=== PATIENT | male | born 1965 | race Caucasian/White ===

== ENCOUNTER → 2020-06-01 12:40 | Outpatient (CLI) | payer OTHER, SELFPAY ==
[2020-06-02 00:21] LABS: SARS-CoV-2 RNA PCR Negative
== END ==
PROVIDERS: PCP Family Medicine Sports Medicine; Visit Provider Internal Medicine Gastroenterology
DX: Z01.812 Encounter for preprocedural laboratory examination (principal); Z20.822 Contact with and (suspected) exposure to COVID-19
CPT/HCPCS: C9803; U0003; U0005

== ENCOUNTER 2020-06-04 01:18 | Day surgery (SDC) | payer OTHER, SELFPAY ==
[2020-05-24 08:48] VITALS: BMI 38.5
[2020-06-04 10:06] VITALS: BP 132/73; PULSE 94; RESP 12; TEMP 36.4; O2SAT 98; BMI 37.3
--- NOTE | 2020-06-04 10:13 | WPDANESEPPF ---
Anes - Initial Pre Proc Eval Procedure: Operation Date: 06/04/20 11:15 Proposed Procedures p Screening Colonoscopy - John Renee MD Date/Time: 06/04/20 10:13 Surgeon: John Renee MD Pre Op Diagnosis: Neoplasm Screening Patient Data Age: 54 Gender: M Height: 1.88 m Weight: 131.9 kg Last Vital Signs Temp 36.4 C L 06/04/20 10:06 Pulse 94 06/04/20 10:06 Resp 12 06/04/20 10:06 BP 132/73 06/04/20 10:06 Pulse Ox 98 06/04/20 10:06 Allergies Allergy/AdvReac Type Severity Reaction Status Date / Time No Known Allergies Allergy Verified 06/04/20 10:03 Home Medications Medication Instructions Recorded Confirmed Type amlodipine 10 mg PO DAILY 05/24/20 05/24/20 History atorvastatin 80 mg PO DAILY 05/24/20 05/24/20 History insulin glargine [Lantus U-100 55 unit SUBCUT DAILY 05/24/20 06/04/20 History Insulin] insulin lispro [Humalog U-100 20 unit SUBCUT DAILY 05/24/20 06/04/20 History Insulin] levothyroxine [Synthroid] 200 mcg PO DAILY 05/24/20 06/04/20 History lisinopril-hydrochlorothiazide 1 tablet PO BID 05/24/20 06/04/20 History metformin 1,000 mg PO BID 05/24/20 06/04/20 History metoprolol succinate 50 mg PO DAILY 05/24/20 06/04/20 History pioglitazone 30 mg PO DAILY 05/24/20 06/04/20 History Patient hx anesthesia problems: none Family hx anesthesia problems: none PMFSH Past Medical History Medical History (Updated 06/04/20 @ 10:15 by Eusebio Restrepo MD) Diabetes HTN (hypertension) Hyperlipidemia Hypothyroidism Obesity Osteoarthritis Social History Social History Smoking packs per day: 2 Smoking cigarettes per day: 40.0 Years smoked: 16 Smoking pack-years: 32.00 Smoking status: Former smoker Tobacco type: cigarettes Alcohol intake: current Alcohol use details: rarely Living arrangements: with family Spiritual care concerns: No Anes - Eval Final PreProcedure Day of Procedure 06/04/20 10:13 Patient weight: obese Heart: regular rate and rhythm Lungs: clear to auscultation and normal air movement Airway: Mallampati scale class II Neurological: alert and oriented Last oral intake: >/= 8 hours ASA classification: III Emergent: no Anesthetic plan: proceed Anesthesia type and monitoring: general GIVS Informed Consent: The patient's anesthetic plan and its attendant risks and benefits were discussed with the patient/family/POA. Questions were solicited and answers provided to the satisfaction of the patient/family/POA.
[2020-06-04] MEDS: LACTATED RINGERS 1,000 ML 150 ML IV CONT (10:16)
[2020-06-04 10:21] LABS: Glucose Point of Care 211 (65-105)
--- NOTE | 2020-06-04 11:05 | PM.HPGS ---
History of Present Illness History of Present Illness Consent: Risks, benefits, and alternatives have been discussed and questions answered. Patient agrees to proceed with procedure. Chief complaint: Neoplasm Screening Narrative: Eligio Overton is a 54 year old male here for first screening colonoscopy Review of Systems Constitutional: Constitutional: Denies headache(s) and Denies weakness Eyes: Eyes: Denies blurry vision ENT: Reports Normal hearing present, Denies headache(s) and Denies neck pain Cardiovascular: Cardiovascular: Denies chest pain and Denies dyspnea Respiratory: Respiratory: Denies dyspnea Gastrointestinal: Gastrointestinal: Reports no additional gastrointestinal complaints Genitourinary: Genitourinary: Denies dysuria Musculoskeletal: Musculoskeletal: Denies neck pain Integumentary/Breasts: Skin/Breast: Denies dry skin Neurologic: Reports Normal hearing present, Denies headache(s) and Denies weakness Psychiatric: Psychiatric: Denies anxiety Endocrine: Endocrine: Denies change in body appearance Hematologic/Lymphatic: Hematologic/Lymphatic: Denies easy bleeding Allergic/Immunologic: Allergic/Immunologic: Denies urticaria PMF Past Medical History Medical History (Updated 06/04/20 @ 11:06 by John Renee MD) Colon cancer screening Diabetes HTN (hypertension) Hyperlipidemia Hypothyroidism Obesity Osteoarthritis Social History Social History Smoking packs per day: 2 Smoking cigarettes per day: 40.0 Years smoked: 16 Smoking pack-years: 32.00 Smoking status: Former smoker Tobacco type: cigarettes Alcohol intake: current Alcohol use details: rarely Living arrangements: with family Spiritual care concerns: No Meds Home Medications and Allergies Home Medications Medication Instructions Recorded Confirmed Type amlodipine 10 mg PO DAILY 05/24/20 05/24/20 History atorvastatin 80 mg PO DAILY 05/24/20 05/24/20 History insulin glargine [Lantus U-100 55 unit SUBCUT DAILY 05/24/20 06/04/20 History Insulin] insulin lispro [Humalog U-100 20 unit SUBCUT DAILY 05/24/20 06/04/20 History Insulin] levothyroxine [Synthroid] 200 mcg PO DAILY 05/24/20 06/04/20 History lisinopril-hydrochlorothiazide 1 tablet PO BID 05/24/20 06/04/20 History metformin 1,000 mg PO BID 05/24/20 06/04/20 History metoprolol succinate 50 mg PO DAILY 05/24/20 06/04/20 History pioglitazone 30 mg PO DAILY 05/24/20 06/04/20 History Allergies Allergy/AdvReac Type Severity Reaction Status Date / Time No Known Allergies Allergy Verified 06/04/20 10:03 Vital Signs Vital Signs - 24 hr 06/04/20 10:06 Temperature 97.5 F L Pulse Rate 94 Respiratory Rate 12 Blood Pressure 132/73 Pulse Oximetry 98 Exam Const: General: comfortable and no acute distress HENMT: General nose exam: Normal nares present Eyes: General: appearance normal, both eyes and all related structures Neck: Neck: no JVD Resp: Auscultation: clear to auscultation bilaterally Cardio: Rate: regular rate Rhythm: regular rhythm GI: Inspection: non-distended GI Palp: Yes Soft to palpation Skin: General skin exam: normal color Neuro: General: gait normal Speech: normal speech Extrem: General: normal to inspection Psych: Mental Status: mental status grossly normal Assessment and Plan Assessment and plan (1) Colon cancer screening: Code(s): Z12.11 - Encounter for screening for malignant neoplasm of colon Status: Acute Assessment and Plan: will proceed with colonoscopy
[2020-06-04 11:28] VITALS: BP 121/68; PULSE 80; RESP 19; O2SAT 98
[2020-06-04 11:38] VITALS: BP 120/72; PULSE 79; RESP 19; O2SAT 99
[2020-06-04 11:45] VITALS: BP 115/53; PULSE 77; RESP 19; O2SAT 99
== END 2020-06-04 12:01 | disposition home or self-care (01) ==
PROVIDERS: PCP Family Medicine Sports Medicine; Visit Provider Internal Medicine Gastroenterology
PROC: 0DJD8ZZ Inspection of Lower Intestinal Tract, Via Natural or Artificial Opening Endoscopic (ICD-10-PCS; CPT 45378; principal; 2020-06-04 11:15)
DX: Z12.11 Encounter for screening for malignant neoplasm of colon (principal); D12.0 Benign neoplasm of cecum; I10 Essential (primary) hypertension; E11.9 Type 2 diabetes mellitus without complications; E78.5 Hyperlipidemia, unspecified; E03.9 Hypothyroidism, unspecified; E66.9 Obesity, unspecified; Z68.37 Body mass index [BMI] 37.0-37.9, adult; Z79.4 Long term (current) use of insulin; Z79.84 Long term (current) use of oral hypoglycemic drugs; Z87.891 Personal history of nicotine dependence
CPT/HCPCS: 45385; 88305; C9803; J2001; J2704; J7120; U0003; U0005

== ENCOUNTER 2025-01-14 16:02 | Inpatient (IN) | payer OTHER, SELFPAY ==
[2025-01-14] VITALS (15 sets, daily range): BP systolic 111–136; BP diastolic 66–106; PULSE 49–92; RESP 13–18; TEMP 36.5–36.6; O2SAT 95–100
--- NOTE | ~2025-01-14 | XR_ITS ---
EXAMINATION: XR chest 1V portable, 01/14/2025 18:50 CDT HISTORY: cp COMPARISON: No comparisons available. Technique: Single view. Findings: The lungs are clear, no effusion. No pneumothorax. Heart is normal size. Mediastinal and hilar contours are within normal limits. Bony thorax no acute abnormality. Impression: No acute cardiopulmonary abnormality. Reviewed, dictated and finalized at location A. Impression: No acute cardiopulmonary abnormality.
--- NOTE | 2025-01-14 16:06 | ECG_ITS ---
Test Date: 2025-01-14 16:08:49 Measurements Intervals [place] Rate: 51 P: 0 [place]: 0 QRS: -80 QRSD: 161 T: 98 QT: 503 QTc: 466 Interpretive Statements UNCERTAIN REGULAR RHYTHM LEFT AXIS DEVIATION [QRS AXIS < -30] RIGHT BUNDLE BRANCH BLOCK [120+ ms QRS DURATION, UPRIGHT V1, 40+ ms S IN I/aVL/V4/V5/V6] WITH REPOLARIZATION CHANGES; CANNOT EXCLUDE ISCHEMIA No previous ECG available for comparison Electronically Signed On 01-14-2025 16:11:33 CDT by Blas Baptiste M.D.
--- NOTE | 2025-01-14 16:18 | PC.NURSE ---
Per verbal order by EDP 4 mg of Ondansetron IV push, 4x 81mg ASA PO given
[2025-01-14 16:20] LABS: Hematocrit 45.6 % (42.0-52.0); Hemoglobin 15.3 g/dL (14.0-18.0); Immature Granulocyte Percent A 0.2 % (0-0.5); Lymphocytes Absolute Auto 3.25 K/mm3 (0.9-3.2); Mean Corpuscular HGB Conc 33.6 g/dl (32-36); Mean Corpuscular Hemoglobin 30.0 pg (26-34); Mean Corpuscular Volume 89.4 fl (80-100); Nucleated Red Blood Cells Absolute Auto 0.000 K/mm3 (0.0-0.012); Nucleated Red Blood Cells Perc 0.0 % (0.0-0.2); Platelet Count Result 261 k/mm3 (150-375); Red Blood Count 5.10 M/mm3 (4.6-6.20); White Blood Count 10.4 K/mm3 (4.5-10.0)
[2025-01-14] MEDS: ASPIRIN 81 MG CHEWABLE TABLET 324 MG PO (16:20)
--- NOTE | 2025-01-14 16:20 | ED.CHESTPAIN ---
HPI - Chest Pain General Chief Complaint: Chest Pain Stated Complaint: chest pain Time Seen by Provider: 01/14/25 16:05 Source: patient and family () Mode of arrival: ambulatory Limitations: no limitations History of Present Illness HPI narrative: 59-year-old patient presents with acute onset mid chest pain that he describes as a pressure that radiates across his central and right and left chest. Symptoms started acutely, non exertional, at 2:40 p.m.. He has not yet taken aspirin. He states nothing like this has ever happened before. He has never seen a lining parts sewer. He denies any cardiac history. Associated with nausea but no vomiting. Denies any history of heart failure. States he does walk for exercise but otherwise does not run. Denies any previous anginal symptoms. The patient initially denied any other radiating pain but while the lining parts sewer was present he did note that his left arm was becoming numb. Cardiac risk factors HTN: Yes HLD: Yes DM: Yes, insulin-dependent Obese: Yes Smoker: No (listed as former in EMR) Personal history IA/TIA/CVA: No Fam Hx IA in first degree relative <65yo: No (but yes >65yo) Related Data Home Medications ?Medication ?Instructions ?Recorded ?Confirmed ?Last Taken ?Type amlodipine 10 mg tablet 10 mg PO DAILY 05/24/20 01/14/25 Unknown History atorvastatin 80 mg tablet 80 mg PO DAILY 05/24/20 01/14/25 Unknown History insulin glargine 100 unit/mL 55 unit subcut DAILY 05/24/20 01/14/25 Unknown History subcutaneous solution (Lantus U-100 Insulin) insulin lispro 100 unit/mL 20 unit subcut DAILY 05/24/20 01/14/25 Unknown History subcutaneous solution (Humalog U-100 Insulin) levothyroxine 200 mcg tablet 200 mcg PO DAILY 05/24/20 01/14/25 Unknown History (Synthroid) lisinopril 20 1 tablet PO BID 05/24/20 01/14/25 06/04/20 History mg-hydrochlorothiazide 12.5 mg tablet metformin 1,000 mg tablet 1,000 mg PO BID 05/24/20 01/14/25 Unknown History metoprolol succinate 50 mg 50 mg PO DAILY 05/24/20 01/14/25 06/04/20 History tablet,extended release 24 hr pioglitazone 30 mg tablet 30 mg PO DAILY 05/24/20 01/14/25 06/04/20 History Allergies Allergy/AdvReac Type Severity Reaction Status Date / Time No Known Allergies Allergy Verified 06/04/20 10:03 [facility] Past Medical History Medical History Insulin dependent diabetes mellitus Colon cancer screening Hypothyroidism Osteoarthritis Hyperlipidemia HTN (hypertension) Obesity Social History Social History Smoking packs per day: 2 Smoking cigarettes per day: 40.0 Years smoked: 16 Smoking pack-years: 32.00 Smoking status: Former smoker Tobacco type: cigarettes Alcohol intake: current Alcohol use details: rarely Living arrangements: with family Spiritual care concerns: No Exam Narrative: GENERAL: well-nourished, appears uncomfortable HEAD: Normocephalic, atraumatic. ENT: Nares clear, no rhinorrhea or epistaxis. Gross auditory acuity intact. NECK: Supple. No meningismus. CHEST: Speaking in full sentences. No respiratory distress. HEART: Slow rate and rhythm. ABDOMEN: Soft, nondistended. No rigidity or guarding. Not peritoneal EXTREMITIES: Normal range of motion. No lower extremity edema. SKIN: Mild diaphoresis, warm no rash across chest/abdomen. NEURO: No focal deficits. Alert and oriented. Answering questions. Following commands. Normal speech without aphasia or dysarthria. PSYCH: Normal mood and affect. Course Vital Signs Vital signs: Vital Signs Temperature 97.7 F 01/14/25 16:10 Pulse Rate 49 L 01/14/25 16:10 Respiratory Rate 15 01/14/25 16:10 Blood Pressure 111/70 01/14/25 16:10 Pulse Oximetry 100 01/14/25 16:10 Oxygen Delivery Room Air 01/14/25 16:10 Temperature 97.7 F 01/14/25 16:10 Pulse Rate 92 01/14/25 16:36 Respiratory Rate 16 01/14/25 16:36 Blood Pressure 129/79 01/14/25 16:36 Pulse Oximetry 98 01/14/25 16:36 Oxygen Delivery Room Air 01/14/25 16:17 MDM - Chest Pain MDM Narrative Medical decision making narrative: Patient presents with acute onset chest pain today at 2:40 p.m.. In the emergency department he is afebrile with signs notable for heart rate of 49 beats per minute. Given the appearance of the EKG, STEMI activated and discussed patient immediately with lining parts sewer Dr Baptiste who concurs with taking him to the cardiac catheterization lab. present and also verifies understanding in addition to the patient. Concurs with administering ASA, holding on Brilinta, but does state verbally to give 5000U heparin (despite 4000 being max order set). HEART SCORE History 2 highly suspicious 1 moderately suspicious 0 slightly suspicious History score [address] depression/elevation not due to LBBB, LVH, or digoxin [address] depression but LBBB, LVH, nonspecific repolarization changes 0 normal ECG score 2 Age 2 >/= 65 1 45-64 0 <45 Age score 1 Risk factors (HTN, hypercholesterolemia, DM, obesity with BMI >30, current smoker or cessation </=3mo), positive fam hx with parent or sibling with CVD before age 65, atherosclerotic disease (prior IA, PCI/CABG, CVA/TIA, or peripheral arterial disease) 2 >/= 3 risk factors or history of atherosclerotic dz 1 - 1-2 risk factors 0 no known risk factors Risk factor score 2 Initial Troponin 2 >3 times normal limit 1 1-3 times normal limit 0 less than or equal to normal limit Troponin score 1 Total HEART Score 8 Hyperglycemia is without anion gap or aiden acidosis (CO2 >15). AST and ALT slightly elevated without prior for comparison. It does appear while patient waiting for catheterization laboratory technician that rate and possibly rhythm are different. Repeat EKG performed. This has appearance of atrial fibrillation. TSH ordered. Differential Diagnosis Differential diagnosis: Likely stable angina, unstable angina pectoris, atypical chest pain, st elevation myocardial infarction, costochondritis, chest pain, biliary colic and other (pancreatitis; GERD/gastritis; considered dissection, felt to be less likely) Lab Data Attestation: I reviewed the patient's lab results. Lab results narrative: Very mild leukocytosis. Lipase WNL 01/14/25 16:14 01/14/25 16:14 Labs: Lab Results 01/14/25 01/14/25 01/14/25 Range/Units 16:10 16:13 16:14 WBC 10.4 H (4.5-10.0) K/mm3 RBC 5.10 (4.6-6.20) M/mm3 Hgb 15.3 (14.0-18.0) g/dL Hct 45.6 (42.0-52.0) % MCV 89.4 (80-100) fl MCH 30.0 (26-34) pg MCHC 33.6 (32-36) g/dl RDW 12.6 (11.5-14.5) % Plt Count 261 (150-375) k/mm3 MPV 9.7 (7.4-10.4) fl Immature Gran % (Auto) 0.2 (0-0.5) % Neut % (Auto) 58.0 (45.5-73.1) % Lymph % (Auto) 31.2 (18.3-44.2) % [place] % (Auto) 9.2 H (2.6-8.5) % Eos % (Auto) 1.0 (0-4.4) % Baso % (Auto) 0.4 (0.2-1.2) % Lymph # (Auto) 3.25 H (0.9-3.2) K/mm3 [place] # (Auto) 1.0 H (0.1-0.6) K/mm3 Eos # (Auto) 0.1 (0-0.3) K/mm3 Baso # (Auto) 0.0 (0.0-0.1) K/mm3 Abs Immat Gran (auto) 0.02 (0.00-0.031) K/mm3 Absolute Neuts (auto) 6.1 (1.3-6.7) K/mm3 Absolute Nucleated RBC 0.000 (0.0-0.012) K/mm3 Nucleated RBC % 0.0 (0.0-0.2) % PT 13.1 (11.1-14.7) Seconds INR 1.0 APTT 23.6 (22.3-36.8) Seconds Sodium 134 L (137-145) mmol/L Potassium 3.8 (3.4-5.0) mmol/L Chloride 101 (98-107) mmol/L Carbon Dioxide 21 L (22-30) mmol/L Anion Gap 12 (4-12) mmol/L BUN 16 (9-20) mg/dL Creatinine 0.77 (0.7-1.3) mg/dL Estim Creat Clear Calc 120 ml/min Estimated GFR > 60 (59 - ) Glucose 247 H (65-110) mg/dL POC Capillary Glucose 242 H (65-105) mg/dl Calcium 9.0 (8.4-10.2) mg/dL Total Bilirubin 0.6 (0.2-1.3) mg/dL AST 69 H (17-59) U/L ALT 53 H (6-50) U/L Alkaline Phosphatase 83 (38-126) U/L Troponin I 0.038 H* (0.000-0.034) ng/mL Total Protein (6.3-8.2) g/dL Albumin (3.5-5.1) g/dL Lipase (23-300) U/L Nasal MRSA (PCR) 01/14/25 01/14/25 Range/Units 16:14 16:33 WBC (4.5-10.0) K/mm3 RBC (4.6-6.20) M/mm3 Hgb (14.0-18.0) g/dL Hct (42.0-52.0) % MCV (80-100) fl MCH (26-34) pg MCHC (32-36) g/dl RDW (11.5-14.5) % Plt Count (150-375) k/mm3 MPV (7.4-10.4) fl Immature Gran % (Auto) (0-0.5) % Neut % (Auto) (45.5-73.1) % Lymph % (Auto) (18.3-44.2) % [place] % (Auto) (2.6-8.5) % Eos % (Auto) (0-4.4) % Baso % (Auto) (0.2-1.2) % Lymph # (Auto) (0.9-3.2) K/mm3 [place] # (Auto) (0.1-0.6) K/mm3 Eos # (Auto) (0-0.3) K/mm3 Baso # (Auto) (0.0-0.1) K/mm3 Abs Immat Gran (auto) (0.00-0.031) K/mm3 Absolute Neuts (auto) (1.3-6.7) K/mm3 Absolute Nucleated RBC (0.0-0.012) K/mm3 Nucleated RBC % (0.0-0.2) % PT (11.1-14.7) Seconds INR APTT (22.3-36.8) Seconds Sodium (137-145) mmol/L Potassium (3.4-5.0) mmol/L Chloride (98-107) mmol/L Carbon Dioxide (22-30) mmol/L Anion Gap (4-12) mmol/L BUN (9-20) mg/dL Creatinine (0.7-1.3) mg/dL Estim Creat Clear Calc ml/min Estimated GFR (59 - ) Glucose (65-110) mg/dL POC Capillary Glucose (65-105) mg/dl Calcium (8.4-10.2) mg/dL Total Bilirubin (0.2-1.3) mg/dL AST (17-59) U/L ALT (6-50) U/L Alkaline Phosphatase (38-126) U/L Troponin I Pending (0.000-0.034) ng/mL Total Protein 7.5 (6.3-8.2) g/dL Albumin 4.6 (3.5-5.1) g/dL Lipase 135 (23-300) U/L Nasal MRSA (PCR) Pending ECG Data EKG #1: Attestation: I personally reviewed and interpreted this ECG as follows: ECG completion date: 01/14/25 ECG completion time: 16:08 Prior ECG tracings: not available for review (no prior for comparison) Interpretation: Appears to be elevations in inferior leads as well as V4-V6. Unclear rhythm initially in the 2. The tension P-waves consistently and in the [place] when present profound greater than 200 milliseconds. No T-wave inversions. Left axis deviation (QRS is positive with dominant R wave in Lead I; QRS is negative with dominant S wave in leads II, III, and aVF) . RBBB given QRS greater [id number]; RSR' M-shaped pattern in V1-V3; wide, slurred S wave in lateral leads (I, aVL, to a lesser extent V5-6) . ==Cardiology interpretation: UNCERTAIN REGULAR RHYTHM LEFT AXIS DEVIATION [QRS AXIS < -30] RIGHT BUNDLE BRANCH BLOCK [120+ ms QRS DURATION, UPRIGHT V1, 40+ ms S IN I/aVL/V4/V5/V6] WITH REPOLARIZATION CHANGES; CANNOT EXCLUDE ISCHEMIA EKG #2: Attestation: I personally reviewed and interpreted this ECG as follows: ECG completion date: 01/14/25 ECG completion time: 16:24 Interpretation: Irregularly irregular rhythm without consistently appreciated P-waves. This appears to be atrial fibrillation though rate controlled. T waves remain elevated , particularly in III and avf. ST depression in V2. Discharge Plan Discharge Clinical Impression: Hyperglycemia due to diabetes mellitus, Elevated AST (SGOT), ALT (SGPT) level raised, Abnormal ECG, Acute chest pain, Atrial fibrillation Patient Disposition: Still a Patient Condition: Serious
--- NOTE | 2025-01-14 16:22 | ECG_ITS ---
Test Date: 2025-01-14 16:24:11 Measurements Intervals [place] Rate: 89 P: 0 CT: 0 QRS: -11 QRSD: 107 T: 106 QT: 394 QTc: 481 Interpretive Statements ATRIAL FIBRILLATION ST ELEVATION, CONSIDER INFERIOR INJURY [MARKED ST ELEVATION W/O NORMALLY INFLECTED T-WAVE IN II/aVF] ACUTE MA Compared to ECG 01/14/2025 16:08:49 ST (T wave) deviation now present Myocardial infarct finding now present Left-axis deviation no longer present Right bundle-branch block no longer present Possible ischemia no longer present Electronically Signed On 01-14-2025 18:51:34 CDT by Blas Baptiste M.D.
[2025-01-14] MEDS: HEPARIN SOD/D5W 100 UNITS/ML 25,000 UNITS/250 ML BAG 10 UNITS IV CONT (16:28)
[2025-01-14 16:32] LABS: Alanine Aminotransferase 53 U/L (6-50); Albumin Level 4.6 g/dL (3.5-5.1); Alkaline Phosphatase 83 U/L (38-126); Anion Gap 12 mmol/L (4-12); Aspartate Amino Transferase 69 U/L (17-59); Bilirubin,Total 0.6 mg/dL (0.2-1.3); Blood Urea Nitrogen 16 mg/dL (9-20); Calcium 9.0 mg/dL (8.4-10.2); Carbon Dioxide 21 mmol/L (22-30); Chloride 101 mmol/L (98-107); Estimated CRCL calculation 120 ml/min; Estimated Glomerular Filt Rate > 60; Glucose 247 mg/dL (65-110); Lipase 135 U/L (23-300); Potassium 3.8 mmol/L (3.4-5.0); Sodium 134 mmol/L (137-145); Total Protein 7.5 g/dL (6.3-8.2)
[2025-01-14 16:32] LABS: INR 1.0; Partial Thromboplastin Time 23.6 Seconds (22.3-36.8); Prothrombin Time 13.1 Seconds (11.1-14.7)
[2025-01-14] MEDS: MORPHINE SULFATE (*CRX) 4 MG/ML INJ IV PUSH (16:32)
--- NOTE | 2025-01-14 16:32 | PM.CNCAR ---
Assessment and Plan Assessment and plan (1) ST elevation myocardial infarction (STEMI) of inferior wall: Code(s): I21.19 - ST elevation (STEMI) myocardial infarction involving other coronary artery of inferior wall Status: Acute Plan 51-year-old man with diabetes, hypertension, hyperlipidemia, and morbid obesity is presented to the emergency room with chest discomfort Inferior STEMI -the risk, benefits, alternatives have been discussed with the patient who agreed to proceed for with primary PCI via cardiac catheterization emergently -loaded with aspirin and given heparin -obtain transthoracic echocardiogram Admit to ICU History of Present Illness History of Present Illness Consult date/time: 01/14/25 16:32 Requesting physician: Sylvie Garcia MD Consult reason: chest pain Reason For Visit: chest pain Narrative: 51-year-old man with diabetes, hypertension, hyperlipidemia, and morbid obesity is presented to the emergency room with chest discomfort. Chest pain started about 1-2 hours ago while at rest. Previously did not have any cardiopulmonary limitations to physical activity. This suddenly occur and is of substernal location with pressure-like sensation and associated radiation down the left arm that is described as numbness. Has associated nausea. He continues to have chest discomfort as well as nausea. No bleeding or other cardiac conditions that he is aware of at this time. Denies abdominal pain. Review of Systems Cardiovascular: Cardiovascular: Reports as per HPI Respiratory: Respiratory: Reports as per HPI [facility] Past Medical History Medical History Insulin dependent diabetes mellitus Colon cancer screening Hypothyroidism Osteoarthritis Hyperlipidemia HTN (hypertension) Obesity Social History Social History Smoking packs per day: 2 Smoking cigarettes per day: 40.0 Years smoked: 16 Smoking pack-years: 32.00 Smoking status: Former smoker Tobacco type: cigarettes Alcohol intake: current Alcohol use details: rarely Living arrangements: with family Spiritual care concerns: No Meds Home Medications and Allergies Home Medications ?Medication ?Instructions ?Recorded ?Confirmed ?Type amlodipine 10 mg tablet 10 mg PO DAILY 05/24/20 05/24/20 History atorvastatin 80 mg tablet 80 mg PO DAILY 05/24/20 05/24/20 History insulin glargine 100 unit/mL 55 unit subcut DAILY 05/24/20 06/04/20 History subcutaneous solution (Lantus U-100 Insulin) insulin lispro 100 unit/mL 20 unit subcut DAILY 05/24/20 06/04/20 History subcutaneous solution (Humalog U-100 Insulin) levothyroxine 200 mcg tablet 200 mcg PO DAILY 05/24/20 06/04/20 History (Synthroid) lisinopril 20 1 tablet PO BID 05/24/20 06/04/20 History mg-hydrochlorothiazide 12.5 mg tablet metformin 1,000 mg tablet 1,000 mg PO BID 05/24/20 06/04/20 History metoprolol succinate 50 mg 50 mg PO DAILY 05/24/20 06/04/20 History tablet,extended release 24 hr pioglitazone 30 mg tablet 30 mg PO DAILY 05/24/20 06/04/20 History Allergies Allergy/AdvReac Type Severity Reaction Status Date / Time No Known Allergies Allergy Verified 06/04/20 10:03 Vital Signs Vital Signs - 24 hr 01/14/25 16:10 01/14/25 16:15 01/14/25 16:17 Temperature 36.5 C Pulse Rate 49 L 51 L Respiratory Rate 15 Blood Pressure 111/70 Pulse Oximetry 100 100 Oxygen Delivery Room Air Room Air 01/14/25 16:23 Temperature Pulse Rate 92 Respiratory Rate 18 Blood Pressure 129/76 Pulse Oximetry 99 Oxygen Delivery Exam Const: General: in distress HENMT: Mouth: Yes moist mucous membranes Eyes: EOM: EOMs intact bilaterally Neck: Neck: no JVD Resp: Effort & Inspection: normal respiratory effort Auscultation: clear to auscultation bilaterally Cardio: Rate: bradycardic Rhythm: regular rhythm Neuro: Speech: normal speech Extrem: General: no pedal edema Results Labs and Meds 01/14/25 16:14 01/14/25 16:14 Lab results: Patient Weight 01/14/25 23:59 Weight 109.7 kg
--- NOTE | 2025-01-14 16:36 | WPDHPUPDATE1 ---
History and Physical Update Update Date/Time: 01/14/25 16:36 History and Physical has been reviewed, including an updated exam of the patient. There are NO changes in the patient's condition. Risks, benefits, and alternatives have been discussed and questions answered. Patient agrees to proceed with procedure.
--- NOTE | 2025-01-14 16:36 | WPDMODSED ---
Moderate Sedation Note-Pt Data Patient Data Allergies Allergy/AdvReac Type Severity Reaction Status Date / Time No Known Allergies Allergy Verified 06/04/20 10:03 Home Medications ?Medication ?Instructions ?Recorded ?Confirmed ?Type amlodipine 10 mg tablet 10 mg PO DAILY 05/24/20 05/24/20 History atorvastatin 80 mg tablet 80 mg PO DAILY 05/24/20 05/24/20 History insulin glargine 100 unit/mL 55 unit subcut DAILY 05/24/20 06/04/20 History subcutaneous solution (Lantus U-100 Insulin) insulin lispro 100 unit/mL 20 unit subcut DAILY 05/24/20 06/04/20 History subcutaneous solution (Humalog U-100 Insulin) levothyroxine 200 mcg tablet 200 mcg PO DAILY 05/24/20 06/04/20 History (Synthroid) lisinopril 20 1 tablet PO BID 05/24/20 06/04/20 History mg-hydrochlorothiazide 12.5 mg tablet metformin 1,000 mg tablet 1,000 mg PO BID 05/24/20 06/04/20 History metoprolol succinate 50 mg 50 mg PO DAILY 05/24/20 06/04/20 History tablet,extended release 24 hr pioglitazone 30 mg tablet 30 mg PO DAILY 05/24/20 06/04/20 History Current Medications: Active Medications Heparin Sodium (Porcine) (Heparin Sodium 5,000 Units/Ml Vial) 4,000 units IV PUSH PRN PRN PRN Reason: aPTT less than 55 seconds Heparin Sodium (Porcine) (Heparin Sodium 5,000 Units/Ml Vial) 3,500 units IV PUSH PRN PRN PRN Reason: aPTT 55 - 70 seconds Heparin Sodium/Dextrose (Heparin Sodium/D5w 100 Units/Ml) 25,000 units in 250 mls @ 10 mls/hr IV CONT .Q24H PENDING SALE TO [facility]; Protocol Last Admin: 01/14/25 16:28 Dose: 1,000 units/hr, 10 mls/hr Sedation/Anesthesia: No previous sedation/anesthesia problems (including family history). FORMERLY [facility] Past Medical History Medical History Insulin dependent diabetes mellitus Colon cancer screening Hypothyroidism Osteoarthritis Hyperlipidemia HTN (hypertension) Obesity Social History Social History Smoking packs per day: 2 Smoking cigarettes per day: 40.0 Years smoked: 16 Smoking pack-years: 32.00 Smoking status: Former smoker Tobacco type: cigarettes Alcohol intake: current Alcohol use details: rarely Living arrangements: with family Spiritual care concerns: No Mod Sed Physical Exam Physical Exam Pre Procedural Exam: Normal: Lungs, Heart Size and Heart Rhythm and Variation: Heart Rate (bradycardic) Hours since solid foods: 6 Hours since liquid intake: 6 Mallampati Classification: class III Internal Medicine - PN: Obj Da Vital Signs Vital Signs: Vital Signs - 24 hr 01/14/25 16:10 01/14/25 16:15 01/14/25 16:17 Temperature 36.5 C Pulse Rate 49 L 51 L Respiratory Rate 15 Blood Pressure 111/70 Pulse Oximetry 100 100 Oxygen Delivery Room Air Room Air 01/14/25 16:23 Temperature Pulse Rate 92 Respiratory Rate 18 Blood Pressure 129/76 Pulse Oximetry 99 Oxygen Delivery Meds/Results Medications: Active Medications Generic Name Dose Route Start Last Admin Trade Name Freq PRN Reason Stop Dose Admin Heparin Sodium (Porcine) 4,000 units 01/14/25 16:19 Heparin Sodium 5,000 Units/Ml Vial IV PUSH PRN PRN aPTT less than 55 seconds Heparin Sodium (Porcine) 3,500 units 01/14/25 16:19 Heparin Sodium 5,000 Units/Ml Vial IV PUSH PRN PRN aPTT 55 - 70 seconds Heparin Sodium/Dextrose 25,000 units in 250 mls @ 10 mls/hr 01/14/25 16:25 01/14/25 16:28 Heparin Sodium/D5w 100 Units/Ml IV CONT 1,000 units/hr .Q24H BRYNN 10 mls/hr Protocol Administration 1,000 UNITS/HR Labs 01/14/25 16:14 01/14/25 16:14 Labs: Laboratory Results - last 24 hr 01/14/25 01/14/25 01/14/25 16:10 16:13 16:14 WBC 10.4 H RBC 5.10 Hgb 15.3 Hct 45.6 MCV 89.4 MCH 30.0 MCHC 33.6 RDW 12.6 Plt Count 261 MPV 9.7 Immature Gran % (Auto) 0.2 Neut % (Auto) 58.0 Lymph % (Auto) 31.2 [place] % (Auto) 9.2 H Eos % (Auto) 1.0 Baso % (Auto) 0.4 Lymph # (Auto) 3.25 H [place] # (Auto) 1.0 H Eos # (Auto) 0.1 Baso # (Auto) 0.0 Abs Immat Gran (auto) 0.02 Absolute Neuts (auto) 6.1 Absolute Nucleated RBC 0.000 Nucleated RBC % 0.0 PT 13.1 INR 1.0 APTT 23.6 Sodium 134 L Potassium 3.8 Chloride 101 Carbon Dioxide 21 L Anion Gap 12 BUN 16 Creatinine 0.77 Estim Creat Clear Calc 120 Estimated GFR > 60 Glucose 247 H POC Capillary Glucose 242 H Calcium 9.0 Total Bilirubin 0.6 AST 69 H ALT 53 H Alkaline Phosphatase 83 Total Protein 7.5 Albumin 4.6 Lipase 135 ASA Classification/Sedation ASA Classification/Sedation ASA Class: IV Emergent: Yes Risks: Risks, benefits and alternatives explained and patient/family accepted plan for sedation. Patient re-evaluated immediately prior to sedation.
[2025-01-14 16:46] LABS: Troponin I 0.038 ng/mL (0.000-0.034)
[2025-01-14 17:48] LABS: MRSA (PCR) NOT DETECTED (NOT DETECTE)
--- NOTE | 2025-01-14 18:00 | WPDCARDPROC ---
Cardiac Cath Procedure Note Date of procedure:: 01/14/25 Performing physician:: CATHETERIZATION LABORATORY REPORT Procedure Date: 01/14/2025 Referring Physician: Dr. Garcia Anesthesia: Versed and Fentanyl were ordered and given in my presence at 1712, procedure ended at 1757. Supervision of nurse monitored moderate sedation with 1mg Versed and 50mcg Fentanyl was provided for 55 minutes. Pre-op Diagnosis: Inferior STEMI Post-op Diagnosis: Inferior STEMI Procedure(s): Left heart catheterization with coronary angiography IVUS guided PCI Ultrasound guided arterial access Access Site: Right common femoral artery Brief History and Clinical Indications: 59-year-old man with diabetes, hypertension, hyperlipidemia, obstructive sleep apnea on CPAP, and morbid obesity presented with chest pain whose clinical presentation was consistent with inferior ST-elevation DE complicated by atrial fibrillation. All risks, benefits and alternatives to left heart catheterization with or without percutaneous coronary intervention was discussed at length with the patient. Risk of complications including but not limited to bleeding, infection, arrhythmia, stroke, worsening kidney function, blood loss, groin hematoma, limb loss, emergency coronary artery bypass grafting, and even were discussed with the patient and all questions were answered. The patient understood and wished to proceed. Time out called, patient name, date of , medical record number, allergies, procedure performed, identify Flight Radio Operator, patient and staff member concurred with accurate data, procedure carried on. Findings: LEFT HEART CATHETERIZATION FINDINGS: 1. Left main: The left main coronary artery has distal 20% stenosis. 2. Left anterior descending: The LAD at its ostium has 20-30% stenosis. The mid LAD right at the takeoff of a diagonal branch has a long diffuse segment of myocardial bridging. The remainder of the LAD in its diagonal branches are free of high-grade angiographic stenosis. 3. Left circumflex: The left circumflex artery is chronically occluded after the 2nd OM branch. OM1 is a moderate caliber vessel supplying the majority of the anterolateral wall and is angiographically free of stenosis. OM2 is a small caliber vessel supplying a small territory and is insignificant. The remainder of the left circumflex fills via retrograde [id number] collaterals. 4. Right coronary artery: The RCA is a large dominant vessel with a thrombus in the proximal body resulting in 99% stenosis. There is YOHANA 3 flow. The mid RCA has a tortuous bend and likely only has 40-50% stenosis. The distal RCA has an area of 50% stenosis. The bifurcation of the PDA and PL branches there is a 60-70% stenosis (Mistry 1, 0, 0). 5. Opening AO pressure 157/95 and closing AO pressure 137/76 6. Right iliofemoral angiogram: Adequate puncture site for vascular closure device. No significant disease in the visualized portions of the vasculature. Description of Procedure: Informed consent signed and placed in the chart. Patient transferred to collaborative physician room. Prepped and draped in usual sterile fashion. 2% lidocaine in right groin area. Micropuncture needle used to access right common femoral artery with modified Seldinger technique under ultrasound and fluoroscopic guidance. J wire advanced, micropuncture cannula placed and exchanged for 6F sheath. 5F JL4 diagnostic catheter engaged Left Main Coronary Artery. JR4 guide catheter engaged Right Coronary Artery. Multiple orthogonal angiogram obtained and reviewed Prior to the procedure, EKG did review the patient to be in atrial fibrillation. Amiodarone 150 mg was administered intravenously over 10 min period with anglican of sinus rhythm at the end of the procedure. Procedure Description for PCI: Heparin was used for anticoagulation (ACT maintained above 250) Patient loaded with heparin at 70 units/kg. 0.014 Runthrough coronary wire was passed in to the distal rPDA. The lesion was pre-dilated with a 2.0 x 15mm balloon. A 3.5 x 26mm [place] KADEN was successfully deployed into proximal RCA. Intracoronary NTG was administered. IVUS showed areas of underexpansion and post dilation performed with 4.0 x 15mm NC with excellent angiographic results. All intracoronary equipment was under fluoroscopy and final angiograms showed an excellent result. At this time due to poor visualization of left circumflex during the diagnostic portion, a EBU 3.5 guide catheter was used to engage the left main coronary artery. Multiple orthogonal angiogram obtained and reviewed. Decision was made to medically manage the chronically total occluded left circumflex. Pre-procedure - YOHANA 3 flow Post-procedure - YOHANA 3 flow No angiographic complications identified. Assessment: Successful IVUS guided PCI to the proximal RCA with 3.5 x 26mm [place] KADEN; post dilated with 4.0 x 15mm NC to high jorge with excellent angiographic results. Paroxysmal atrial fibrillation with successful anglican of sinus rhythm at completion of procedure. Post Operative Condition: Stable No significant blood loss Disposition: ICU Plan: DAPT for 1 year followed by ASA indefinitely. Continue aggressive medical therapy and risk factor modification. Blas Baptiste Interventional Cardiology
[2025-01-14 18:11] LABS: Thyroid Stimulating Hormone 5.400 uIU/mL (0.465-4.680)
--- NOTE | 2025-01-14 18:25 | ADMGEN ---
This patient, Eligio Overton, was admitted to Intensive Care Unit-3. Patient/family oriented to hospital policies and general routines including ID bracelet, bed and alarms, visiting hours, pain management, procedures, bathroom and other care routines, personal items, smoking policy, room service/diet, and visiting hours. Information on how to activate the Rapid Response Team has been discussed. Patient/Family are encouraged to report perceived risks to care and to ask questions if they do not understand what they are told or what they should do.
--- NOTE | 2025-01-14 18:47 | ECG_ITS ---
Test Date: 2025-01-14 18:47:33 Measurements Intervals [place] Rate: 83 P: 46 AR: 182 QRS: -41 QRSD: 106 T: 105 QT: 363 QTc: 427 Interpretive Statements SINUS RHYTHM MARKED LEFT AXIS DEVIATION [QRS AXIS < -30] MODERATE T-WAVE ABNORMALITY, CONSIDER LATERAL ISCHEMIA [-0.1+ mV T WAVE IN I/aVL/V5/V6] Compared to ECG 01/14/2025 16:24:11 Left-axis deviation now present T-wave abnormality now present Possible ischemia now present Atrial fibrillation no longer present ST (T wave) deviation no longer present Myocardial infarct finding no longer present Electronically Signed On 01-14-2025 18:53:16 CDT by Blas Baptiste M.D.
--- NOTE | 2025-01-14 19:08 | PC.NURSE ---
Pt. received brilinta from laboratory sample carrier nurses prior to transferring down to ICU 3 per patient and Kwadwo in field laborer.
[2025-01-14] MEDS: SODIUM CHLORIDE 0.9% IV 1,000 ML 125 ML IV CONT (19:37)
[2025-01-14 20:16] LABS: Troponin I 2.850 ng/mL (0.000-0.034)
[2025-01-14] MEDS: INSULIN ASPART (*BKC) 100 UNITS/ML SUB-Q (21:13)
[2025-01-14] MEDS: ATORVASTATIN 40 MG TABLET 80 MG PO (21:14)
[2025-01-14 21:18] LABS: Troponin I 10.800 ng/mL (0.000-0.034)
[2025-01-15] VITALS (7 sets, daily range): BP systolic 127–136; BP diastolic 61–74; PULSE 78–87; RESP 12–14; TEMP 36.6–36.9; O2SAT 94–98
--- NOTE | 2025-01-15 | ECHO_ITS ---
Patient Info Name: Eligio Overton Age: 59 years : 1965 Gender: Male Ht: 74 in Wt: 240 lbs BSA: 2.41 m2 HR: 79 bpm BP: 136 / 71 mmHg Heart Rhythm: Sinus Rhythm Technical Quality: Fair Exam Date: 01/15/2025 10:57 AM Patient Status: I Admit Date: 01/14/2025 Exam Type: CA echo dop color flow w con Complete two-dimensional, color flow and Doppler transthoracic echocardiogram is performed with contrast to opacify the left ventricle and to improve the deliniation of the left ventricle endocardial borders. Staff Referring Physician: Sylvie Garcia Handicraft Or Hobby Shop Manager: Gudelia Farrar Attending Provider: Blas Baptiste Contrast/Agitated Saline Contrast/Ag. Saline: Definity Amount: 3.00 ml Administered By: Gudelia Farrar Existing IV Access: Yes IV Access Condition: patent with no signs of infiltration Summary 1. The left ventricle is normal in size and systolic function. There is concentric left ventricular remodeling. The left ventricular ejection fraction is visually estimated to be 60-65%. There is hypokinesis of the entire inferior wall. 2. The left atrium is severely dilated. 3. There are no significant valvular abnormalities. Left Ventricle The left ventricle is normal in size and systolic function. There is concentric left ventricular remodeling. The left ventricular ejection fraction is visually estimated to be 60-65%. There is hypokinesis of the entire inferior wall. Right Ventricle The right ventricle is normal in size and systolic function. Left Atria The left atrium is severely dilated. Right Atria The right atrium is dilated. Atrial Septum The atrial septum is not well visualized. Aortic Valve The aortic valve is trileaflet and opens well. There is no aortic regurgitation. Pulmonic Valve The pulmonic valve is not well visualized. Mitral Valve The mitral valve is normal. There is trace mitral regurgitation. Tricuspid Valve The tricuspid valve is normal. There is trace tricuspid regurgitation. Pericardium/Pleural Pericardium is normal in appearance with no evidence for significant pericardial effusion. Inferior Vena Cava Inferior vena cava is not well visualized. Aorta The aortic root is not well visualized. Left Ventricular Outflow Tract Name Value Normal LVOT 2D LVOT Diameter 2.0 cm LVOT Doppler LVOT Peak Velocity 84 cm/s LVOT Peak Gradient 3 mmHg LVOT Mean Gradient 2 mmHg LVOT VTI 16 cm LVOT VTI/AV VTI Ratio 0.7 LVOT Stroke Volume 52 ml LVOT CO 3.9 l/min LVOT CI 1.6 l/min/m2 Mitral Valve Name Value Normal MV Diastolic Function MV E Peak Velocity 77 cm/s MV A Peak Velocity 48 cm/s MV E/A 1.6 MV Decel Time (PW) 145 ms MV Annular TDI MV E/e' (Septal) 10.2 MV E/e' (Lateral) 8.1 MV E/e' (Average) 9.2 Tricuspid Valve Name Value Normal TV Regurgitation Doppler TR Peak Velocity 209 cm/s TR Peak Gradient 17 mmHg Estimated PAP/RSVP RA Pressure 10 mmHg <=5 PA Systolic Pressure 27 mmHg <36 RV Systolic Pressure 27 mmHg <36 TV Annular TDI TV Lateral Veronique s' Velocity 15.0 cm/s >=9.5 Aorta Name Value Normal Ascending Aorta Ao Root Diameter (MM) 3.0 cm Ao Root Diam Index (MM) 1.3 cm/m2 Aortic Valve Name Value Normal AV Doppler AV Peak Velocity 117 cm/s AV Peak Gradient 5 mmHg AV Mean Gradient 3 mmHg AV VTI 23 cm AV Area (Cont Eq VTI) 2.3 cm2 >=3.0 AV Area (Cont Eq [place]) 2.3 cm2 AV DI ([place]) 0.72 AV Regurgitation 2D LVOT Area 3.2 cm2 Ventricles Name Value Normal LV Dimensions 2D/MM IVS Diastolic Thickness (2D) 1.4 cm 0.6-1.0 LVID Diastole (2D) 4.7 cm 4.2-5.8 LVIW Diastolic Thickness (2D) 1.4 cm 0.6-1.0 LVID Systole (2D) 3.1 cm 2.5-4.0 LVOT Diameter 2.0 cm LV Mass (2D Cubed) 266.50 g 88.00-224.00 LV Mass Index (2D Cubed) 111 g/m2 49-115 Relative Wall Thickness (2D) 0.59 <=0.42 LV Fractional Shortening/Ejection Fraction 2D/MM LV Fractional Shortening (2D) 35 % 25-43 LV EF (2D Teichholz) 64 % LV Diastolic Volume (4C MOD) 130 ml LV EF (4C MOD) 70 % LV Diastolic Volume (2C MOD) 87 ml LV EF (2C MOD) 59 % LV Diastolic Volume (BP MOD) 108 ml 62-150 LV Diastolic Volume Index (BP MOD) 45 ml/m2 34-74 LV Systolic Volume (BP MOD) 40 ml 21-61 LV Systolic Volume Index (BP MOD) 17 ml/m2 11-31 LV EF (BP MOD) 63 % 52-72 LV Diastolic Length (4C) 8.1 cm LV Systolic Length (4C) 7.1 cm LV Stroke Volume (4C MOD) 91 ml Atria Name Value Normal LA Dimensions LA Dimension (MM) 5.5 cm 3.0-4.0 LA Volume (4C A-L) 138 ml LA Volume (BP A-L) 136 ml RA Dimensions RA Area (4C) 21.6 cm2 <=18.0 Report Signatures
[2025-01-15 03:58] LABS: Hematocrit 41.2 % (42.0-52.0); Hemoglobin 13.7 g/dL (14.0-18.0); Immature Granulocyte Percent A 0.2 % (0-0.5); Lymphocytes Absolute Auto 1.21 K/mm3 (0.9-3.2); Mean Corpuscular HGB Conc 33.3 g/dl (32-36); Mean Corpuscular Hemoglobin 30.0 pg (26-34); Mean Corpuscular Volume 90.2 fl (80-100); Nucleated Red Blood Cells Absolute Auto 0.000 K/mm3 (0.0-0.012); Nucleated Red Blood Cells Perc 0.0 % (0.0-0.2); Platelet Count Result 192 k/mm3 (150-375); Red Blood Count 4.57 M/mm3 (4.6-6.20); White Blood Count 9.2 K/mm3 (4.5-10.0)
[2025-01-15 04:22] LABS: Anion Gap 6 mmol/L (4-12); Blood Urea Nitrogen 12 mg/dL (9-20); Calcium 8.9 mg/dL (8.4-10.2); Carbon Dioxide 27 mmol/L (22-30); Chloride 102 mmol/L (98-107); Estimated CRCL calculation 146 ml/min; Estimated Glomerular Filt Rate > 60; Glucose 205 mg/dL (65-110); Magnesium 1.8 mg/dL (1.6-2.3); Potassium 3.7 mmol/L (3.4-5.0); Sodium 135 mmol/L (137-145)
--- NOTE | 2025-01-15 04:39 | PC.NURSE ---
Desiree Agustin RN took over patient. Report given at [id number]
[2025-01-15] MEDS: LEVOTHYROXINE SODIUM 100 MCG TABLET 200 MCG PO (05:13)
[2025-01-15] MEDS: INSULIN ASPART (*BKC) 100 UNITS/ML SUB-Q (05:14)
[2025-01-15] MEDS: METOPROLOL SUCCINATE EXT REL 50 MG TABCR PO (08:34)
[2025-01-15] MEDS: ASPIRIN 81 MG ENTERIC TABLET PO (08:34)
[2025-01-15] MEDS: TICAGRELOR 90 MG TABLET PO (08:34)
[2025-01-15] MEDS: INSULIN GLARGINE (*BKC) 100 UNITS/ML 50 UNITS SUB-Q (08:35)
--- NOTE | 2025-01-15 08:55 | WPDCNINT ---
Assessment and Plan Assessment and plan (1) ST elevation myocardial infarction (STEMI) of inferior wall: Code(s): I21.19 - ST elevation (STEMI) myocardial infarction involving other coronary artery of inferior wall Status: Acute Assessment and Plan: Status post PCI and stent placement in RCA Patient now chest pain-free ICU telemetry Echo ordered and pending Continue aspirin Brilinta statin beta-shazia lisinopril (2) HTN (hypertension): Code(s): I10 - Essential (primary) hypertension Status: Acute Assessment and Plan: Currently on beta-shazia lisinopril and will resume hydrochlorothiazide (3) Hyperlipidemia: Code(s): E78.5 - Hyperlipidemia, unspecified Status: Acute Assessment and Plan: Continue statin (4) Diabetes: Code(s): E11.9 - Type 2 diabetes mellitus without complications Status: Acute Assessment and Plan: Patient eats only 2 meals at home and takes Lantus in the morning and with meal insulin twice a day I have restarted him on Lantus and with meal insulin 3 times a day here in the hospital since he will be eating 3 meals here. Patient can resume his home regimen once discharge (5) Hypothyroidism: Code(s): E03.9 - Hypothyroidism, unspecified Status: Acute Assessment and Plan: Continue levothyroxine. His TSH is slightly elevated I will defer making any adjustment at this time and to recommended patient to follow up with his primary care physician Plan I anticipate patient will be discharged today if the echo does not show any significant abnormalities SCD while in the bed as anticipate patient will be ambulating today Transfer out of ICU today [facility] Sander Consult Note Consult date: 01/15/25 Reason for consult: STEMI, diabetes mellitus HPI: Eligio Overton is a 59 year old male with past medical history of diabetes, hyperlipidemia, hypertension, hypothyroidism presented yesterday to ER with chief complaint of chest pain that started at 2:40 p.m. while he was resting. Pain was 10 out 10 center in the chest pressure-like quality and radiated to his left arm. It was as stated with shortness of breath but no nausea vomiting palpitations dizziness lightheadedness or loss of consciousness. Patient denies any other complaints all other systems were reviewed and were negative. In the ER patient was diagnosed with a STEMI and was taken to cardiac catheterization lab. Patient underwent PCI and stent placement in his RCA. Postprocedure patient was admitted to ICU for further evaluation management. This morning patient states he feels good and denies any complaints at this time. His states his chest pain is completely resolved. All other systems were reviewed and were negative. He is in sinus rhythm. His blood pressure is slightly elevated. Review of Systems Review of Systems: All systems reviewed & are unremarkable except as noted in HPI and below (HPI) [facility] Past Medical History Medical History Insulin dependent diabetes mellitus Colon cancer screening Hypothyroidism Osteoarthritis Hyperlipidemia HTN (hypertension) Obesity Family History Family History Mother Congestive heart failure Social History Social History Smoking packs per day: 2 Smoking cigarettes per day: 40.0 Years smoked: 15 Smoking pack-years: 30.00 Smoking status: Former smoker Tobacco type: cigarettes Alcohol intake: former Alcohol use details: rarely Substance use: never Substance use type: marijuana Other substance usage details: 5 mg edibles for sleep Lack of Transportation: No Lack of Food: Never True Current Housing: I Have Housing Concerned About Future Housing: No Difficulty Paying Gas/Electric Bills: No Difficulty Paying for Meds: No Currently Unemployed: No Education: Associate Degree Difficulty w/ Childcare or Family Care: No Living arrangements: with family Spiritual care concerns: No Meds Home Medications and Allergies Home Medications ?Medication ?Instructions ?Recorded ?Confirmed ?Type amlodipine 10 mg tablet 10 mg PO DAILY 05/24/20 01/14/25 History atorvastatin 80 mg tablet 80 mg PO DAILY 05/24/20 01/14/25 History insulin glargine 100 unit/mL 55 unit subcut DAILY 05/24/20 01/14/25 History subcutaneous solution (Lantus U-100 Insulin) insulin lispro 100 unit/mL 20 unit subcut DAILY 05/24/20 01/14/25 History subcutaneous solution (Humalog U-100 Insulin) levothyroxine 200 mcg tablet 200 mcg PO DAILY 05/24/20 01/14/25 History (Synthroid) lisinopril 20 1 tablet PO BID 05/24/20 01/14/25 History mg-hydrochlorothiazide 12.5 mg tablet metformin 1,000 mg tablet 1,000 mg PO BID 05/24/20 01/14/25 History metoprolol succinate 50 mg 50 mg PO DAILY 05/24/20 01/14/25 History tablet,extended release 24 hr pioglitazone 30 mg tablet 30 mg PO DAILY 05/24/20 01/14/25 History Allergies Allergy/AdvReac Type Severity Reaction Status Date / Time No Known Allergies Allergy Verified 06/04/20 10:03 Vital Signs Vital Signs - 24 hr 01/14/25 16:10 01/14/25 16:15 01/14/25 16:17 Temperature 36.5 C Pulse Rate 49 L 51 L Pulse Rate [Pedal (Dorsalis Pedis) Palpation] Respiratory Rate 15 Blood Pressure 111/70 Pulse Oximetry 100 100 Oxygen Delivery Room Air Room Air 01/14/25 16:23 01/14/25 16:36 01/14/25 18:30 Temperature Pulse Rate 92 92 76 Pulse Rate [Pedal (Dorsalis Pedis) Palpation] 76 Respiratory Rate 18 16 16 Blood Pressure 129/76 129/79 127/68 Pulse Oximetry 99 98 97 Oxygen Delivery 01/14/25 19:00 01/14/25 19:15 01/14/25 19:45 Temperature Pulse Rate 84 90 84 Pulse Rate [Pedal (Dorsalis Pedis) Palpation] 84 90 84 Respiratory Rate 13 15 13 Blood Pressure 119/69 132/106 H 132/66 Pulse Oximetry 95 97 97 Oxygen Delivery 01/14/25 20:00 01/14/25 20:00 01/14/25 20:00 Temperature 36.6 C Pulse Rate 81 81 Pulse Rate [Pedal (Dorsalis Pedis) Palpation] Respiratory Rate 14 Blood Pressure 129/69 Pulse Oximetry 96 Oxygen Delivery Room Air 01/14/25 20:45 01/14/25 21:45 01/14/25 22:00 Temperature Pulse Rate 80 80 75 Pulse Rate [Pedal (Dorsalis Pedis) Palpation] 80 80 Respiratory Rate 13 14 Blood Pressure 136/74 124/71 Pulse Oximetry 97 97 Oxygen Delivery 01/14/25 22:00 01/14/25 22:45 01/14/25 23:45 Temperature Pulse Rate 79 79 82 Pulse Rate [Pedal (Dorsalis Pedis) Palpation] 79 82 Respiratory Rate 13 15 13 Blood Pressure 124/71 117/69 132/71 Pulse Oximetry 96 97 96 Oxygen Delivery 01/15/25 00:00 01/15/25 00:00 01/15/25 00:00 Temperature 36.6 C Pulse Rate 78 82 Pulse Rate [Pedal (Dorsalis Pedis) Palpation] Respiratory Rate 14 Blood Pressure 127/68 Pulse Oximetry 95 Oxygen Delivery Room Air 01/15/25 02:00 01/15/25 02:00 01/15/25 03:38 Temperature Pulse Rate 78 78 Pulse Rate [Pedal (Dorsalis Pedis) Palpation] Respiratory Rate 14 Blood Pressure 135/70 Pulse Oximetry 94 Oxygen Delivery Room Air 01/15/25 04:00 01/15/25 04:00 01/15/25 05:52 Temperature 36.7 C Pulse Rate 87 87 79 Pulse Rate [Pedal (Dorsalis Pedis) Palpation] Respiratory Rate 12 Blood Pressure 134/61 Pulse Oximetry 97 Oxygen Delivery 01/15/25 05:52 01/15/25 08:00 01/15/25 08:00 Temperature 36.7 C 36.9 C Pulse Rate 82 86 Pulse Rate [Pedal (Dorsalis Pedis) Palpation] Respiratory Rate 13 14 Blood Pressure 134/61 133/74 Pulse Oximetry 96 96 Oxygen Delivery Room Air 01/15/25 08:34 Temperature Pulse Rate 82 Pulse Rate [Pedal (Dorsalis Pedis) Palpation] Respiratory Rate Blood Pressure Pulse Oximetry Oxygen Delivery Exam Narrative: General: Pt is alert awake and in NAD Lungs/Chest: Trachea central Clear BS B/L, No crackles or wheezing. Cardiac: RRR. Normal S1 S2. No murmurs Circulation: Pedal pulses are intact and symmetrical. Abdomen: Normal bowel sounds. Obese. Soft. NT. ND. Extremities: No clubbing, cyanosis or edema. Warm, right groin cath site does not show any hematoma or swelling : Kelsey in place Neurologic: Follows commands. Moves all 4 extremities PERRL, AO x3 Skin: No Rash Results Labs 01/15/25 03:53 01/15/25 03:53 Labs: Impressions Chest X-Ray 01/14/25 19:31 Impression: No acute cardiopulmonary abnormality. Short CBC 01/14/25 01/15/25 Range/Units 16:14 03:53 WBC 10.4 H 9.2 (4.5-10.0) K/mm3 Hgb 15.3 13.7 L (14.0-18.0) g/dL Hct 45.6 41.2 L (42.0-52.0) % Plt Count 261 192 (150-375) k/mm3 BMP 01/14/25 01/15/25 16:14 03:53 Sodium 134 L 135 L Potassium 3.8 3.7 Chloride 101 102 Carbon Dioxide 21 L 27 BUN 16 12 Creatinine 0.77 0.62 L Glucose 247 H 205 H Calcium 9.0 8.9 Cardiac Enzymes 01/14/25 01/14/25 01/14/25 Range/Units 16:14 18:59 20:41 Troponin I 0.038 H* 2.850 H* D 10.800 H* D (0.000-0.034) ng/mL Liver Function 01/14/25 Range/Units 16:14 Total Bilirubin 0.6 (0.2-1.3) mg/dL AST 69 H (17-59) U/L ALT 53 H (6-50) U/L Alkaline Phosphatase 83 (38-126) U/L Albumin 4.6 (3.5-5.1) g/dL ECG Interpretation: SINUS RHYTHM MARKED LEFT AXIS DEVIATION [QRS AXIS < -30] MODERATE T-WAVE ABNORMALITY, CONSIDER LATERAL ISCHEMIA [-0.1+ mV T WAVE IN I/aVL/V5/V6] Compared to ECG 01/14/2025 16:24:11 Left-axis deviation now present T-wave abnormality now present Possible ischemia now present Atrial fibrillation no longer present ST (T wave) deviation no longer present Myocardial infarct finding no longer present Electronically Signed On 01-14-2025 18:53:16 CDT by Blas Lopez VTE Prophylaxis VTE prophylaxis: mechanical ordered Hospitalist MIPS Advance Care Plan I have confirmed that the patient's Advanced Care Plan is present, code status is documented, or surrogate decision maker is listed in patient medical record.: Yes Medication Reconciliation I have utilized all available resources to obtain, update and review the patients current medications (includes all prescriptions, OTC, herbals, cannabis, and nutritional supplements).: Yes
--- NOTE | 2025-01-15 09:30 | PM.DS ---
DS: Admitting Diagnosis Discharge Date 01/15/2025 Admitting Diagnosis Inferior STEMI DS: Discharge Diagnosis Discharge Diagnosis Plan 51-year-old man with insulin-dependent diabetes, hypertension, hyperlipidemia, obstructive sleep, and morbid obesity presented with chest pain found to have inferior ST-elevation CO Inferior STEMI -status post primary PCI -aspirin 81 mg p.o. daily indefinitely -Brilinta 90 mg p.o. b.i.d. for minimum of 1 year if not more -atorvastatin 80 mg every evening -carvedilol 12.5 mg p.o. b.i.d. -echocardiogram -cardiac rehab Coronary artery disease -[employer] of left circumflex with [id number] collaterals -remaining disease in the RCA to be medically managed with aspirin and aggressive lipid-lowering goals Obstructive sleep apnea -sleep Medicine referral DS: Summary Hospital Course Hospital Course: 51-year-old man with insulin-dependent diabetes, hypertension, hyperlipidemia, obstructive sleep, and morbid obesity presented with chest pain found to have inferior ST-elevation CO. He emergently underwent primary PCI to the proximal RCA 1 drug-eluting stent. He has been doing much better than an echocardiogram has been ordered for him. He will follow-up in the outpatient clinic with a ventral plans for cardiac rehab. Status at Discharge Functional status at discharge: independent ambulation Overall status at discharge: patient is back to baseline Time Spent with Patient Time attestation: Total time spent providing and/or coordinating discharge services: Time spent: Greater than 30 minutes Exam Const: General: comfortable HENMT: Mouth: Yes moist mucous membranes Eyes: EOM: EOMs intact bilaterally Neck: Neck: no JVD Resp: Effort & Inspection: normal respiratory effort Auscultation: clear to auscultation bilaterally Cardio: Rate: regular rate Rhythm: regular rhythm Extrem: General: no pedal edema Other: Right groin access site without hematoma or swelling. No ecchymosis Psych: Affect: normal affect DS: Data Data Completed and Pending Labs on day of discharge: Labs from last 24 hours 01/15/25 01/15/25 01/15/25 07:57 03:53 00:22 WBC 9.2 RBC 4.57 L Hgb 13.7 L Hct 41.2 L MCV 90.2 MCH 30.0 MCHC 33.3 RDW 12.6 Plt Count 192 MPV 9.7 Immature Gran % (Auto) 0.2 Neut % (Auto) 77.8 H Lymph % (Auto) 13.1 L Stark % (Auto) 8.2 Eos % (Auto) 0.5 Baso % (Auto) 0.2 Lymph # (Auto) 1.21 Stark # (Auto) 0.8 H Eos # (Auto) 0.1 Baso # (Auto) 0.0 Abs Immat Gran (auto) 0.02 Absolute Neuts (auto) 7.2 H Absolute Nucleated RBC 0.000 Nucleated RBC % 0.0 PT INR APTT Sodium 135 L Potassium 3.7 Chloride 102 Carbon Dioxide 27 Anion Gap 6 BUN 12 Creatinine 0.62 L Estim Creat Clear Calc 146 Estimated GFR > 60 Glucose 205 H POC Capillary Glucose 185 H 184 H Calcium 8.9 Magnesium 1.8 Total Bilirubin AST ALT Alkaline Phosphatase Troponin I Total Protein Albumin Lipase TSH Nasal MRSA (PCR) 01/14/25 01/14/25 01/14/25 21:12 20:41 18:59 WBC RBC Hgb Hct MCV MCH MCHC RDW Plt Count MPV Immature Gran % (Auto) Neut % (Auto) Lymph % (Auto) Stark % (Auto) Eos % (Auto) Baso % (Auto) Lymph # (Auto) Stark # (Auto) Eos # (Auto) Baso # (Auto) Abs Immat Gran (auto) Absolute Neuts (auto) Absolute Nucleated RBC Nucleated RBC % PT INR APTT Sodium Potassium Chloride Carbon Dioxide Anion Gap BUN Creatinine Estim Creat Clear Calc Estimated GFR Glucose POC Capillary Glucose 222 H Calcium Magnesium Total Bilirubin AST ALT Alkaline Phosphatase Troponin I 10.800 H* D 2.850 H* D Total Protein Albumin Lipase TSH Nasal MRSA (PCR) 01/14/25 01/14/25 01/14/25 16:33 16:14 16:13 WBC 10.4 H RBC 5.10 Hgb 15.3 Hct 45.6 MCV 89.4 MCH 30.0 MCHC 33.6 RDW 12.6 Plt Count 261 MPV 9.7 Immature Gran % (Auto) 0.2 Neut % (Auto) 58.0 Lymph % (Auto) 31.2 Stark % (Auto) 9.2 H Eos % (Auto) 1.0 Baso % (Auto) 0.4 Lymph # (Auto) 3.25 H Stark # (Auto) 1.0 H Eos # (Auto) 0.1 Baso # (Auto) 0.0 Abs Immat Gran (auto) 0.02 Absolute Neuts (auto) 6.1 Absolute Nucleated RBC 0.000 Nucleated RBC % 0.0 PT 13.1 INR 1.0 APTT 23.6 Sodium 134 L Potassium 3.8 Chloride 101 Carbon Dioxide 21 L Anion Gap 12 BUN 16 Creatinine 0.77 Estim Creat Clear Calc 120 Estimated GFR > 60 Glucose 247 H POC Capillary Glucose Calcium 9.0 Magnesium Total Bilirubin 0.6 AST 69 H ALT 53 H Alkaline Phosphatase 83 Troponin I 0.038 H* Total Protein 7.5 Albumin 4.6 Lipase 135 TSH 5.400 H Nasal MRSA (PCR) Not detected 01/14/25 16:10 WBC RBC Hgb Hct MCV MCH MCHC RDW Plt Count MPV Immature Gran % (Auto) Neut % (Auto) Lymph % (Auto) Stark % (Auto) Eos % (Auto) Baso % (Auto) Lymph # (Auto) Stark # (Auto) Eos # (Auto) Baso # (Auto) Abs Immat Gran (auto) Absolute Neuts (auto) Absolute Nucleated RBC Nucleated RBC % PT INR APTT Sodium Potassium Chloride Carbon Dioxide Anion Gap BUN Creatinine Estim Creat Clear Calc Estimated GFR Glucose POC Capillary Glucose 242 H Calcium Magnesium Total Bilirubin AST ALT Alkaline Phosphatase Troponin I Total Protein Albumin Lipase TSH Nasal MRSA (PCR) Discharge Plan Discharge Attending physician on discharge: Blas Baptiste Consulting providers: Sharad Burt Discharging Clinician: Blas Baptiste Patient Disposition: Home Activity: other - see discharge instructions Diet: heart healthy Wound Care Instructions: other - see discharge instructions Patient Instructions: Antibiotic Form, Heart Attack (GEN), Chest Pain (GEN) Patient Language: Welsh Stand Alone Forms: General Discharge Information, Work/School Release IP Follow-up/Referrals: PHYSICIAN,PURCHASING ADMINISTRATIVE ASSISTANT [Primary Care Provider, Internal Medicine] Discharge Medications: New aspirin 81 mg Tablet,Delayed Release (Dr/Ec) 81 mg PO QAM Qty: 90 3RF atorvastatin 40 mg Tablet 80 mg PO QHS Qty: 180 3RF carvedilol [Coreg] 12.5 mg Tablet 12.5 mg PO Q12HR Qty: 180 3RF ticagrelor [Brilinta] 90 mg Tablet 90 mg PO Q12HR Qty: 180 3RF Continued insulin glargine [Lantus U-100 Insulin] 100 unit/mL solution 55 unit SUBCUT DAILY Patient Comments: pt takes Lantus in the morning. lisinopril-hydrochlorothiazide 20-12.5 mg tablet 1 tablet PO BID levothyroxine [Synthroid] 200 mcg tablet 200 mcg PO DAILY insulin lispro [Humalog U-100 Insulin] 100 unit/mL solution 20 unit subcut DAILY Patient Comments: 20 units lunch, 25 units supper pioglitazone 30 mg tablet 30 mg PO DAILY metformin 1,000 mg tablet 1,000 mg PO BID Qty: 180 0RF Rx Instructions: Resume on Wednesday01/17/2025 Discontinued atorvastatin 80 mg tablet 80 mg PO DAILY metoprolol succinate 50 mg tablet extended release 24 hr 50 mg PO DAILY amlodipine 10 mg tablet 10 mg PO DAILY Date of admission: 01/14/25 16:33 Primary Care Provider: PHYSICIAN,PURCHASING ADMINISTRATIVE ASSISTANT Admitting Provider: Blas Baptiste Attending physician on admission: Blas Baptiste Condition: Serious
[2025-01-15] MEDS: PERFLUTREN LIPID MICROSPHERES 1.5 ML VIAL DILUTED TO 10 ML TOTAL VOLUME IV PUSH (11:10)
--- NOTE | 2025-01-15 11:32 | IVDEFINITY ---
Prior to administration of IV Definity the patient was educated on the risks and benefits of the imaging enhancing agent including potential adverse side effects. The patient verbalized understanding. Allergies were verified. No exclusion criteria were identified and at least one of the following inclusion criteria were met: 1) physician request, 2) patient technically difficult to image (per the [place] [employer] guidelines of two or more segments not discernable within the apical view), or 3) questionable left ventricular function. ?
[2025-01-15 12:21] LABS: Troponin I 21.800 ng/mL (0.000-0.034)
== END 2025-01-15 12:25 | disposition home or self-care (01) | DRG 322 ==
LOC: ANHED 16:15 → ANHCATHLAB 16:27 → ANHICU 16:48
PROVIDERS: Internal Medicine; Admitting Provider Internal Medicine; Emergency Provider Student in an Organized Health Care Education/Training Program; Visit Provider Internal Medicine
PROC: 4A023N7 Measurement of Cardiac Sampling and Pressure, Left Heart, Percutaneous Approach (ICD-10-PCS; CPT 93452; principal; 2025-01-14 16:45)
PROC: 027034Z Dilation of Coronary Artery, One Artery with Drug-eluting Intraluminal Device, Percutaneous Approach (ICD-10-PCS; CPT 92928; 2025-01-14 16:45)
PROC: 027034Z Dilation of Coronary Artery, One Artery with Drug-eluting Intraluminal Device, Percutaneous Approach (ICD-10-PCS; 2025-01-14 16:45)
DX: I21.19 ST elevation (STEMI) myocardial infarction involving other coronary artery of inferior wall (principal); I25.10 Atherosclerotic heart disease of native coronary artery without angina pectoris; I25.82 Chronic total occlusion of coronary artery; I10 Essential (primary) hypertension; I48.0 Paroxysmal atrial fibrillation; E78.5 Hyperlipidemia, unspecified; E11.65 Type 2 diabetes mellitus with hyperglycemia; E03.9 Hypothyroidism, unspecified; G47.33 Obstructive sleep apnea (adult) (pediatric); M19.90 Unspecified osteoarthritis, unspecified site; E66.01 Morbid (severe) obesity due to excess calories; F10.90 Alcohol use, unspecified, uncomplicated; Z87.891 Personal history of nicotine dependence; Z82.49 Family history of ischemic heart disease and other diseases of the circulatory system; Z68.30 Body mass index [BMI] 30.0-30.9, adult; Z79.4 Long term (current) use of insulin; Z79.84 Long term (current) use of oral hypoglycemic drugs
CPT/HCPCS: 36415; 71045; 80048; 80053; 82948; 83690; 83735; 84443; 84484; 85025; 85610; 85730; 87641; 92978; 93005; 93458; 96374; 99285; A9270; C1753; C1760; C1769; C1874; C1887; C1894; C8929; C9606; J0282; J1644; J1815; J2003; J2250; J2270; J2305; J2405; J3010; J7030; J7040; Q9957